=== PATIENT | female | born 2000 | race Caucasian/White ===

== ENCOUNTER 2025-10-20 15:13 | Outpatient (REF) | payer OTHER, SELFPAY ==
--- NOTE | ~2025-10-20 | US_ITS ---
EXAMINATION: US PELVIS CLINICAL INFORMATION: Abnormal uterine/vaginal bleeding, lower abdominal pain, IUD placed in 2020 COMPARISON: None available. TECHNIQUE: Ultrasound of the pelvis is performed using both transabdominal and transvaginal transducers along with Doppler. Transvaginal imaging is performed due to inadequate visualization transabdominally. FINDINGS: Uterus: The uterus is retroflexed and measures 7.0 x 3.3 x 3.8 cm. Echogenic IUD is positioned in the lower endometrial canal possibly extending into the myometrium in the lower uterine body. IUD has migrated at least 1.7 cm. The double wall endometrial thickness is 2-3 mm. The uterus is smooth in contour and has normal myometrial echogenicity. No visible fibroid. Adnexa: Both ovaries are visualized. There is normal color flow to the adnexa. There is no ovarian torsion. There is no pelvic ascites or fluid collection. Right ovary measures 2.9 x 1.7 x 1.5 cm. Left ovary measures 2.3 x 1.5 x 1.5 cm. US/US pelvic and transvaginal IMPRESSION: IUD has migrated into the lower uterine cavity and possibly has penetrated into the myometrium in the lower uterine body. Electronically signed by: Juan Ramon Reynolds MD 10/20/2025 05:03 PM KEISHA LAUREANO
--- OUTSIDE RECORDS SUMMARY | 2025-10-21 00:47 | XMS_ITS | Clinical Summary ---
Author Organization [facility] Address [address] [place] [id number] Phone Care Team Providers Care Internal Communications Manager Name Role Phone Unavailable Primary Care Provider Unavailabl e Allergies No known active allergies Social History Tobacco Use Types Packs/Day Years Used Date Smoking Tobacco: Never Assessed Education Answer Date Recorded Are you interested in more education? Not on nuno e 03/19/2023 Are you concerned about learning? Not on file 03/19/2023 No 03/19/2023 No 03/19/2023 Digital Access Answer Date Recorded No 04/09/2023 No 04/09/2023 No 04/09/2023 Reliable internet access at home? Not on file 04/09/2023 Device with a working camera? Not on file Comments Unknown Sex and Gender Information Value Date Recorded Sex Assigned at Not on file Legal Sex Female 6:27 PM EST Gender Identity Not on file Sexual Orientation Not on file Plan of Treatment Health Maintenance Due Date Last Done Comments Adult Td,Tdap Booster 1998 DEPRESSION SCREENING 2010 SMOKING Hx and SMOKELESS TOBACCO SCREENING 2011 HEPATITIS C SCREENING 2016 HIV ONE-TIME SCREENING (18-65 YEARS) 2016 PAP SMEAR 2019 INFLUENZA VACCINE (#1) 2025 0, 08/26/2019, 09/24/2018, Additional history exists COVID-19 VACCINE ( season) 2025 12/18/2020, 12/04/2020 HEPATITIS A VACCINES Aged Out 06/19/2018, 11/28/19 18 No longer eligible based on patient's age to complete this topic HIB VACCINES Aged Out No longer eligi ble based on patient's age to complete this topic MENINGOCOCCAL VACCINES (ACWY) Aged Out No longer eligible based on patient's age to complete this topic MENINGOCOCCAL VACCINES (B) Aged Out N o longer eligible based on patient's age to complete this topic PNEUMOCOCCAL VACCINES (0-49 years) Aged Out No longer eligible based on patient's age to complete this topic Medical Devices Not on file Additional Source Comments The information contained in this document represents components of the legal health record. It is not the complete legal health record.[facility]
--- OUTSIDE RECORDS SUMMARY | 2025-10-21 00:47 | XMS_ITS ---
Author Name [facility] Organization Unknown Care Team Organization Name Specialty Phone Email Start Date End [facility] Nohelia [facility] 04/21/20232023
--- OUTSIDE RECORDS SUMMARY | 2025-10-21 00:47 | XMS_ITS | Clinical Summary ---
Author Organization [facility] Address [address] [place] [address] Phone Care Team Providers Care Management Accounts Manager Name Role Phone Unavailable Primary Care Provider Unavailabl e Medications LESSINA 0.1-20 MG-MCG per tabletIndications: Encounter for contraceptive management, unspecified type TAKE ONE TABLET BY MOUTH EVERY DAY 84 tablet 3 8 Active Active Problems Problem Noted Date Diagnosed Date BMI (body mass index), pedia tric, 85th to 94th percentile for age, overweight child, prevention plus category 11/28/2017 Nevus 11/28/2017 Immunizations Immunization Administration Dates Next Due DTaP 01/31/2003, 9,1998,05/08,1998 HPV Vaccine 9 Valent 01/05/2016,08/31/2015,07/01 Hep A, Adult 06/19/2018 Hep A, ped/adol 11/28/2017 Hep B, ped/adol 1998,1998,1998 Hib (PRP-T) 04/02/1999, 8,1998,03/23 IPV 01/31/2003, 9,1998,03/23 Influenza, injectable, quadrivalent 12/10/2015 Influenza, injectable, quadr ivalent, preservative free 11/28/2017 MMR 01/18/2002,01/04/1999 Meningococcal Conj (Menactra) MCV4P 06/04/2014,0 02/05/2009 PPD Test 06/19/2018 Tdap 02/05/2009 Unknown Vaccine 03/13/2018,12/16/2015,12/10/2015 Varicella 02/05/2009,01/04/1999 Family History Relation Name Status Comments Father Alive healthy age: 49 Maternal Grandfather diagnos ed with Asthma, unspecified Maternal Grandmother diagnos ed with Hypercholesteremia, DMII WO CMP NT ST UNCNTR Mother Alive healthy age: 54 Paternal Grandfather heart d isease, [place] diagnosed with HEART DISEASE NOS Paternal Grandmother Alive breast lump diagnosed with NONPSYCHOT BRAIN SYN NOS Social History Tobacco Use Types Packs/Day Years Used Date Smoking Tobacco: Never Assessed Comments Unknown Sex and Gender Information Value Date Recorded Sex Assigned at Not on file Legal Sex Female 6:09 PM EDT Gender Identity Not on file Sexual Orientation Not on file Last Filed Vital Signs Vital Sign Reading Time Taken Comments Blood Pressure 110/60 11/28/2017 12:00 AM EST Pulse - - Temperature 36.3 C (97.3 F) 11/14/2015 12:00 AM EST Respiratory Rate - - Oxygen Saturation - - Inhaled Oxygen Concentration - - Weight 62.1 kg (137 lb) 11/28/2017 12:00 AM EST Height 150.5 cm (4' 11.25 ) 11/28/2017 12:00 AM EST Body Mass Index 27.44 11/28/2017 12:00 AM EST Plan of Treatment Health Maintenance Due Date Last Done Comments DTaP,Tdap,and Td Vaccines (7 - Td or Tdap) 02/05/2019 02/05/2009, 01/31/2003, 04/02/1999, Additional history exists Influenza Vaccines (#1) 2025 11/28/2017, 12/10 COVID-19 Vaccine ( season) 2025 Hepatitis B Vaccines Completed 1998, 1998, 1998 HIB Vaccines Completed 04/02/1999, 06/14, 1998, Additional history exists MMR Vaccines Completed 01/18/2002, 01/04/1999 IPV Vaccines Completed 01/31/2003, 12/15, 1998, Additional history exists Varicella Vaccines Completed 02/05/2009, 01/04/1999 Meningococcal Vaccine Completed 06/04/2014, 009 HPV Vaccines Completed 01/05/2016, 08/13, 07/01/2015 Hepatitis A Vaccines Aged Out 06/19/2018, 11/28/19 18 No longer eligible based on patient's age to complete this topic Men B Vaccine Aged Out No longer elig ible based on patient's age to complete this topic Pneumococcal Vaccine Aged Out No long er eligible based on patient's age to complete this topic Procedures * Due to [place] [employer] law, this organization might not be sharing sensitive test results. Procedure Name Priority Date/Time Associated Diagnosis Comments CHLAMYDIA AND GONORRHEA, AMPLIFIED Routine 06/05/2014 12:00 AM EDT from Last 3 Months or Most Recently Relevant to Health Maintenance Results * Due to [place] [employer] law, this organization might not be sharing sensitive test results. * Chlamydia and Gonorrhoea, Amplified (06/05/2014 12:00 AM EDT) URINE CHLAMYDIA AMP PROBE NEGATIVE CONVERTED LABS Comment: NO CHLAMYDIA TRACHOMATIS RNA DETECTED IN THIS PATIENT'S SAMPLE. (REFERENCE RANGE/NORMAL VALUE: NOT DETECTED) URINE GC AMP PROBE NEGATIVE C ONVERTED LABS Comment: NO NEISSERIA GONORRHOEAE RNA DETECTED IN THIS PATIENT'S SAMPLE. (REFERENCE RANGE/NORMAL VALUE: NOT DETECTED) NOTE: This test uses supervisor packing room-mediated amplification method to detect rRNA from C.Trachomatis and N.Gonorrhoeae. A negative result does not preclude infection. In the case of a negative urine result, testing of an endocervical(female) or urethral(male) specimen is recommended if there is high clinical suspicion of infection. The performance characteristics of this test have not been evaluated in children. The Aptima Combo2 assay is not intended for the evaluation of suspected sexual abuse or for other medico-legal indications. The ordering provider should assess if the patient had consensual sex without risk of sexual abuse. Consult the [facility] if needed. Contact phone number . Therapeutic failure or success cannot be determined with the Aptima Combo2 assay since nucleic acid may persist following appropriate antimicrobial therapy. The Centers for Disease Control and Prevention (CDC) recommends confirmatory retesting using culture or a different nucleic acid amplification test when positive results occur, if indicated. 06/05/2014 Narrative CONVERTED LABS - 06/05/2014 12:00 AM EDT Screening Negative Kath Soto 06/04/2014 04:22:55 PM > Rachel Santiago 06/05/2014 08:34:29 PM > Rachel Santiago NP LAB MICROBIOLOGY - GENERAL ORD ERABLES Final Result CONVERTED LABS from Last 3 Months or Most Recently Relevant to Health Maintenance Insurance [employer]
--- OUTSIDE RECORDS SUMMARY | 2025-10-21 00:47 | XMS_ITS | Encounter Summary ---
Author Organization [facility] Address [address] [place] [address] Phone Care Team Providers Care Puppet Maker Name Role Phone Duke Melgar MD Primary Care Provider Encounter Details Date Type Department Care Team (Late st Contact Info) Description 04/01/2018 Conversion Encounter [facility] [address] [place] [address] Duke Melgar MD [address] [place] [id number] Social History Tobacco Use Types Packs/Day Years Used Date Smoking Tobacco: Never Assessed Comments Unknown Sex and Gender Information Value Date Recorded Sex Assigned at Not on file Legal Sex Female 6:09 PM EDT Gender Identity Not on file Sexual Orientation Not on file documented as of this encounter Plan of Treatment Not on file documented as of this encounter Visit Diagnoses Not on filedocumented in this encounter Care Teams Puppet Maker Relationship Specialty Start Date End Date Duke Melgar MD [address] [place] [address] PCP - General 03/21/18 12/22/24 documented as of this encounter
== END 2025-10-20 15:14 | disposition home or self-care (01) ==
LOC: HO.US 15:13
PROVIDERS: Visit Provider Physician Assistant
DX: R10.30 Lower abdominal pain, unspecified (principal); N93.9 Abnormal uterine and vaginal bleeding, unspecified
CPT/HCPCS: 76830; 76856

== ENCOUNTER → 2025-10-20 15:18 | Outpatient (BNV) | payer OTHER, SELFPAY | PROVIDERS: Visit Provider Radiology Diagnostic Radiology | DX: N93.9 Abnormal uterine and vaginal bleeding, unspecified (principal); Z97.5 Presence of (intrauterine) contraceptive device | CPT/HCPCS: 76830; 76856 ==